=== PATIENT | female | born 1975 | race Two or more races ===

== ENCOUNTER 2018-11-12 03:58 | Emergency (ER) | payer MEDICAID ==
[~2018-11-12] VITALS: Ht 170.2 cm; Wt 74.8 kg
--- NOTE | 2018-11-12 04:00 | NUR ---
ED Nurse Note: pt brought in by ambulance from home c/c weakness and decreased appetite, pt states she hasn't been eating well for the past three wks, pt also reports she's been having pain on her left knee, and nausea but denies vomiting nor diarrhea, denies any med hx, pt reports she drinks occasionally and smokes everyday. pt vss, sinus tach on electronic device monitor, will cont monitor. ambulatory w/ steady gait. daughter at the bedside.
[2018-11-12] MEDS ORDERED: D5 1/2NS w/KCl 20mEq 1,000 ML IV SCH (04:15)
[2018-11-12 04:25] VITALS: BP 150/59
[2018-11-12 04:29] LABS: EOSINOPHILS % (AUTO) 1.3 % (0.0-3.0); HEMATOCRIT 38.2 % (37.0-47.0); HEMOGLOBIN 12.4 G/DL (12.0-16.0); LYMPHOCYTES % (AUTO) 38.2 % (20.0-45.0); MEAN CORPUSCULAR VOLUME 87 FL (80-99); MONOCYTES % (AUTO) 6.9 % (1.0-10.0); NEUTROPHILS % (AUTO) 52.5 % (45.0-75.0); PLATELET COUNT 244 K/UL (150-450); RED BLOOD COUNT 4.38 M/UL (4.20-5.40); RED CELL DISTRIBUTION WIDTH 15.4 % (11.6-14.8); WHITE BLOOD COUNT 9.7 K/UL (4.8-10.8)
[2018-11-12 04:34] LABS: ANION GAP 12 mmol/L (5-15); BLOOD UREA NITROGEN 3 mg/dL (7-18); CALCIUM 8.9 MG/DL (8.5-10.1); CARBON DIOXIDE 22 MMOL/L (21-32); CHLORIDE 97 MMOL/L (98-107); CREATININE 0.6 MG/DL (0.55-1.30); POTASSIUM 3.2 MMOL/L (3.5-5.1); SODIUM 131 MMOL/L (136-145)
[2018-11-12] MEDS ORDERED: Thiamine HCl 100 MG in D5W 55 ML IVPB ONE (04:45)
[2018-11-12 04:47] LABS: ALANINE AMINOTRANSFERASE 34 U/L (12-78); ALBUMIN 4.2 G/DL (3.4-5.0); ALBUMIN/GLOBULIN RATIO 1.2 (1.0-2.7); ALKALINE PHOSPHATASE 86 U/L (46-116); ASPARTATE AMINO TRANSFERASE 37 U/L (15-37); BILIRUBIN,TOTAL 0.3 MG/DL (0.2-1.0)
[2018-11-12] MEDS ORDERED: OMEPRAZOLE20 M2 ORAL (06:35)
--- NOTE | 2018-11-12 06:47 | NUR ---
ED Nurse Note: pt cleared to be d/c per ERMD, pt discharge and aftercare instruction provided w/ prescription, pt education done via discussion and handout, pt advised to follow up with pcp or return to ed if changes in condition, pt vss, ambulatory w/ steady gait, left w/ all belongings. accompanied by daughter. pt iv d/c and id band removed.
[2018-11-12 06:48] VITALS: BP 128/76
--- NOTE | 2018-11-13 22:07 | Emergency Room Report ---
History of Present Illness General Chief Complaint: Generalized Weakness Source: Patient Present Illness Allergies: Coded Allergies: No Known Allergies (Unverified , 11/12/18) Patient History Last Menstrual Period: 10/27/18 Now: No : 2 Para: 2 Nursing Documentation-[facility] Past Medical History: No Stated History Physical Exam Vital Signs Date Time Temp Pulse Resp B/P (MAP) Pulse Ox O2 Delivery O2 Flow Rate FiO2 11/12/18 03:46 97.9 114 18 144/90 (108) 98 Room Air Medical Decision Making Diagnostic Impression: Primary Impression: Alcohol intoxication Labs Test 11/12/18 04:00 White Blood Count 9.7 K/UL (4.8-10.8) Red Blood Count 4.38 M/UL (4.20-5.40) Hemoglobin 12.4 G/DL (12.0-16.0) Hematocrit 38.2 % (37.0-47.0) Mean Corpuscular Volume 87 FL (80-99) Mean Corpuscular Hemoglobin 28.2 PG (27.0-31.0) Mean Corpuscular Hemoglobin Concent 32.3 G/DL (32.0-36.0) Red Cell Distribution Width 15.4 % (11.6-14.8) Platelet Count 244 K/UL (150-450) Mean Platelet Volume 6.0 FL (6.5-10.1) Neutrophils (%) (Auto) 52.5 % (45.0-75.0) Lymphocytes (%) (Auto) 38.2 % (20.0-45.0) Monocytes (%) (Auto) 6.9 % (1.0-10.0) Eosinophils (%) (Auto) 1.3 % (0.0-3.0) Basophils (%) (Auto) 1.0 % (0.0-2.0) Sodium Level 131 MMOL/L (136-145) Potassium Level 3.2 MMOL/L (3.5-5.1) Chloride Level 97 MMOL/L (98-107) Carbon Dioxide Level 22 MMOL/L (21-32) Anion Gap 12 mmol/L (5-15) Blood Urea Nitrogen 3 mg/dL (7-18) Creatinine 0.6 MG/DL (0.55-1.30) Estimat Glomerular Filtration Rate > 60 mL/min (>60) Glucose Level 112 MG/DL (74-106) Calcium Level 8.9 MG/DL (8.5-10.1) Total Bilirubin 0.3 MG/DL (0.2-1.0) Aspartate Amino Transf (AST/SGOT) 37 U/L (15-37) Alanine Aminotransferase (ALT/SGPT) 34 U/L (12-78) Alkaline Phosphatase 86 U/L (46-116) Troponin I 0.000 ng/mL (0.000-0.056) Total Protein 7.7 G/DL (6.4-8.2) Albumin 4.2 G/DL (3.4-5.0) Globulin 3.5 g/dL Albumin/Globulin Ratio 1.2 (1.0-2.7) Thyroid Stimulating Hormone (TSH) 3.033 uiU/mL (0.358-3.740) Serum Alcohol 322 mg/dL Last Vital Signs Date Time Temp Pulse Resp B/P (MAP) Pulse Ox O2 Delivery O2 Flow Rate FiO2 11/12/18 06:48 97.9 80 18 128/76 98 Room Air Status: improved Disposition: HOME, SELF-CARE Condition: Stable Scripts Omeprazole (OMEPRAZOLE) 20 Mg Capsule. 20 MG ORAL DAILY, #20 CAP Prov: Ashish Ames MD 11/12/18 Referrals: NON PHYSICIAN (PCP) Patient Instructions: Alcohol Intoxication Ashish Ames MD Nov 13, 2018 22:07
== END 2018-11-12 06:48 | disposition home or self-care (01) ==
LOC: EDBD 03:58 → EMR 04:05
DX: F10.129 Alcohol abuse with intoxication, unspecified (principal)
CPT/HCPCS: 36415; 80053; 80329; 84443; 84484; 85025; 96365; 96366; 96367; 99284; J8499